=== PATIENT | female | born 1955 | race American Indian/Alaskan Native ===

== ENCOUNTER 2017-09-07 08:45 | Day surgery (SDC) | payer MEDICARE ==
[2017-09-07] MEDS ORDERED: NACL BACTERIOSTATIC INFILTRATI ONE (08:50)
--- NOTE | 2017-09-07 09:52 | Anesthesia Consultation ---
Anesthesia Consult and Med Hx Date of service: 09/07/17 - Airway Anesthetic Teeth Evaluation: Good ROM Head & Neck: Adequate Mental/Hyoid Distance: Adequate Mallampati Class: Class II Intubation Access Assessment: Probably Good - Pulmonary Exam CTA: Yes - Cardiac Exam Cardiac Exam: RRR - Pre-Operative Health Status ASA Pre-Surgery Classification: ASA2 Proposed Anesthetic Plan: MAC - Pulmonary Hx Smoking: Yes - Cardiovascular System Hx Hypertension: Yes - Other Systems Hx Cancer: Yes (breast ca 2004 s/p rightmastectomy )
--- NOTE | 2017-09-07 09:53 | Anesthesia Day of Surgery ---
Anesthesia Day of Surgery - Day of Surgery Patient Examined: Yes Patient H&P Reviewed: Yes Patient is NPO: Yes
[2017-09-07] MEDS ORDERED: DIPRIVAN 10 MG/ML IV ONE (09:55)
[2017-09-07] MEDS ORDERED: SUBLIMAZE ONE (09:56)
[2017-09-07] MEDS ORDERED: XYLOCAINE MPF 2% ONE (09:58)
[2017-09-07] MEDS ORDERED: ANCEF/STERILE WATER 2 GM/20 ML 2 GM/20 ML SYRINGE IV NR (10:00)
[2017-09-07] MEDS ORDERED: PEPCID IV NR (10:00)
[2017-09-07] MEDS ORDERED: VERSED IV NR (10:00)
[2017-09-07] MEDS ORDERED: NACL 0.9% 1000 ML 1,000 ML IV SCH (10:00)
[2017-09-07 10:02] LABS: Hemoglobin 10.4 gm/dl (10.1-14.3)
[2017-09-07 10:03] LABS: Hematocrit 32.4 % (30.3-42.9)
--- NOTE | 2017-09-07 10:04 | Short Stay Summary ---
Short Stay Documentation Date of service: 09/07/17 Narrative H&P: Pt is a 62yo BF LMP 10 years ago spontaneously, presents with post menopausal vaginal bleeding. Pelvic u/s showed an enlarged uterus 10 x 6 x 6cm with 2 fibroids and spongy endometrium. An endometrial biopsy was attempted in the office, but was unable to obtain a sample due to cervical stenosis. She is therefore scheduled for a Hysteroscopy with D&C. - History Principal diagnosis: Post menopausal bleeding H&P: obtained from office Past Medical History: No medical history Past Surgical History: mastectomy (Breast cancer) Social history: no significant social history, single - Allergies and Medications Current Medications: Allergies No Known Drug Allergies Allergy (Verified 09/07/17 09:33) Unknown Home Medications Medication Instructions Recorded Confirmed Last Taken Type Acetaminophen [Non-Aspirin Extra 500 mg PO QDAY PRN 09/07/17 09/07/17 09/05/17 History Strength] Lisinopril/Hydrochlorothiazide 1 each PO QDAY 09/07/17 09/07/17 09/06/17 11:30 History [Zestoretic 10-12.5 mg Tablet] Active Medications Famotidine (Pepcid) 20 mg IV PREOP NR Stop: 09/07/17 12:00 Sodium Chloride (Nacl 0.9% 1000 Ml) 1,000 mls @ 42 mls/hr IV DIRECT ELEN Midazolam HCl (Versed) 2 mg IV PREOP NR Stop: 09/07/17 23:59 - Physical exam General appearance: no acute distress Integumentary: no rash HEENT: Atraumatic Lungs: Clear to auscultation Breasts: deferred Heart: Regular rate Gastrointestinal: normal Female Genitourinary: masses Rectal Exam: deferred Extremities: No edema Neurological: Normal gait, Normal speech - Brief post op/procedure progress note Date of procedure: 09/07/17 Pre-op diagnosis: 1. Post menopausal bleeding 2. Gross cervical lesion Post-op diagnosis: same Procedure: 1. Excision of gross cervical lesion extending from the uterine cavity 2. Hysteroscopy 3. D&C Anesthesia: MAC Findings: An enlarged uterus with a large gross cervical mass extending from the uterine cavity. Normal tubal ostia x2 on hysteroscopy. Copious tissue removed by curettage. Surgeon: SHANELL ZULUAGA Estimated blood loss: 50-100ml Pathology: list (Cervical mass protruding from the uterus sent to pathology - frozen section confirmed uterine malignancy) Specimen disposition: to lab Condition: stable - Hospital course Hospital course: Unremarkable. - Disposition Condition at discharge: Good Disposition: DC- TO HOME OR SELFCARE - Discharge Diagnoses (1) Post-menopausal bleeding Status: Acute (2) Cervical mass Status: Chronic Short Stay Discharge Plan Activity: no restrictions Diet: regular Wound: open to air Follow up with: JOS LLAMAS PA [Primary Care Provider] - 7 Days SHANELL ZULUAGA MD [Staff Physician] - 3 Days Prescriptions: HYDROcodone/APAP 5-325 [[place] 5/325] 1 each PO Q6HR PRN #30 tablet PRN Reason: Pain Ibuprofen [Motrin] 800 mg PO Q8HR PRN #30 tablet PRN Reason: Moder Pain Unrelieved By [place]
[2017-09-07] MEDS ORDERED: SILVER NITRATE TP ONE (10:30)
[2017-09-07] MEDS ORDERED: ZOFRAN ONE (11:05)
[2017-09-07] MEDS ORDERED: NACL 0.9% IR ONE ×2 (11:14→11:25)
[2017-09-07] MEDS ORDERED: MONSEL'S TP ONE ×2 (11:16→11:17)
[2017-09-07] MEDS ORDERED: XYLOCAINE CARDIAC IV ONE ×2 (11:50→13:00)
[2017-09-07] MEDS ORDERED: TORADOL ONE (11:59)
--- NOTE | 2017-09-07 11:59 | Operative Report ---
Operative Report Operative Report: PREOPERATIVE DIAGNOSIS: 1. Postmenopausal bleeding 2. Gross cervical lesion POSTOPERATIVE DIAGNOSIS: Same OPERATIVE PROCEDURE: 1. Excision of gross cervical lesion extending from the uterine cavity 2. Hysteroscopy 3. Dilatation and curettage. SURGEON: Savage Santana MD ANESTHESIA: Gen. mask ANESTHESIOLOGIST: Dr. Stein ESTIMATED BLOOD LOSS: 100 mls FINDINGS: An enlarged 10-12 week size uterus with a large cervical mass extending from the uterine cavity. Normal tubal ostia 2 on hysteroscopy. Copious amounts of tissue removed by curettage. COMPLICATIONS: None COUNTS: Correct x3. PROCEDURE: After the patient was correctly identified, and after general anesthesia was administered, the patient was prepped and draped in the usual sterile fashion and placed in dorsal lithotomy position. First, the bladder was emptied using a straight catheter. Next, a speculum was placed in the vaginal vault and immediately there was noted to be a large cervical mass which appeared necrotic. Several large pieces of the cervical mass was removed and sent for frozen section - which came back - confirmation of uterine malignancy. After all the mass was removed, the anterior lip of the cervix was grasped using a ring forceps. The uterus was sounded to 12 cm. The hysteroscope was introduced into the uterine cavity showing normal tubal ostia 2. Gentle curettage was then performed yielding copious amounts of tissue which was sent to pathology. After all the endometrial tissue was removed, the procedure was considered complete. Monsel solution was applied to the cervix to achieve good hemostasis. All instruments were removed from the vagina. The patient tolerated the procedure well and was transferred to the recovery room in stable condition.
[2017-09-07] MEDS: DILAUDID IV PRN ×2 (12:05→12:16)
[2017-09-07 12:45] VITALS: BP 111/64
[2017-09-07] MEDS ORDERED: TORADOL IV SCH (13:00)
== END 2017-09-07 13:35 | disposition home or self-care (01) ==
LOC: OR 08:45
PROVIDERS: ATTEND Obstetrics & Gynecology
DX: C53.9 Malignant neoplasm of cervix uteri, unspecified (principal); I10 Essential (primary) hypertension; F17.200 Nicotine dependence, unspecified, uncomplicated; Z85.3 Personal history of malignant neoplasm of breast; Z90.11 Acquired absence of right breast and nipple
CPT/HCPCS: 36415; 57500; 58558; 84132; 85014; 85018; 88305; 88331; 88341; 88342; A4217; J0690; J1170; J1885; J2001; J2250; J2405; J2704; J3010; J7030